=== PATIENT | female | born 1985 | race Native Hawaiian/Other Pacific Islander ===

== ENCOUNTER 2016-05-24 11:59 | Emergency (ER) | payer OTHER ==
[~2016-05-24] VITALS: Ht 157.5 cm; Wt 82.4 kg
[2016-05-24 13:21] LABS: PLATELET COUNT 346 K/uL (152-353)
[2016-05-24 14:35] VITALS: BP 112/72; TEMP 98.1
== END 2016-05-24 14:50 | disposition home or self-care (01) ==
LOC: ED 11:59
DX: J02.9 Acute pharyngitis, unspecified (principal)
CPT/HCPCS: 36415; 85027; 87081; 87804; 87880; 99283

== ENCOUNTER 2017-01-30 18:07 | Emergency (ER) | payer OTHER ==
[~2017-01-30] VITALS: Ht 157.5 cm; Wt 86.2 kg
[2017-01-30 19:09] VITALS: BP 120/76; TEMP 98.2
== END 2017-01-30 19:10 | disposition home or self-care (01) ==
LOC: ED 18:07
DX: N39.0 Urinary tract infection, site not specified (principal)
CPT/HCPCS: 81000; 87086; 87088; 99283

== ENCOUNTER 2021-11-29 13:57 | Emergency (ER) | payer OTHER ==
[~2021-11-29] VITALS: Ht 157.5 cm; Wt 90.7 kg
[2021-11-29 15:23] VITALS: BP 132/77; TEMP 98.1
== END 2021-11-29 15:25 | disposition home or self-care (01) ==
LOC: ED 13:57
DX: K04.7 Periapical abscess without sinus (principal)
CPT/HCPCS: 96372; 99282; 99283; J1885; J3490